=== PATIENT | male | born 1960 | race Caucasian/White ===

== ENCOUNTER 2020-01-02 18:53 | Emergency (ER) | payer OTHER ==
[~2020-01-02] VITALS: Ht 177.8 cm; Wt 96.0 kg
[2020-01-02 20:22] VITALS: BP 145/87
== END 2020-01-02 20:20 | disposition home or self-care (01) ==
LOC: ER 18:54
DX: M25.511 Pain in right shoulder (principal); W18.39XA Other fall on same level, initial encounter; Y93.89 Activity, other specified; Y92.89 Other specified places as the place of occurrence of the external cause; Y99.8 Other external cause status
CPT/HCPCS: 73030; 99284